=== PATIENT | female | born 1980 | race Caucasian/White ===

== ENCOUNTER 2022-05-29 15:41 | Outpatient (CLI) | payer MEDICAID, SELFPAY ==
--- NOTE | 2022-05-29 | US_ITS ---
WS: [id number] TRANSABDOMINAL PELVIC AND TRANSVAGINAL PELVIC ULTRASOUND HISTORY: dysmenorrhea COMPARISON: None available. Uterus: 9.5 cm x 5.4 cm x 4.1 cm. Normal size anteverted uterus. A slightly globular appearance of th e uterus. Towards the anterior fundal uterus is a hypoechoic area measuring 2.0 x 2.1 x 2.6 cm most c onsistent with a fibroid. Endometrium: 0.7 cm. Normal size and echogenicity. No increased vascularity. Right ovary: 2.5 cm x 2.3 cm x 1.4 cm. Normal size ovary with several small follicles. Normal vascula rity. No cyst or solid mass. Left ovary: 3.0 cm x 1.9 cm x 2.2 cm. Normal size ovary with several small follicles. Normal vascular ity. No cyst or solid mass. Free fluid: No free fluid. US/US pelv w/transvag [id number] IMPRESSION: 1. Normal endometrium. 2. Uterine fibroid towards the fundus measures 2.0 x 2.1 x 2.6 cm.
== END 2022-05-29 15:42 | disposition home or self-care (01) ==
PROVIDERS: PCP Nurse Practitioner Family; Visit Provider Nurse Practitioner Family
DX: N94.6 Dysmenorrhea, unspecified (principal); D25.9 Leiomyoma of uterus, unspecified
CPT/HCPCS: 76830; 76856

== ENCOUNTER 2022-06-04 09:26 | Emergency (ER) | payer MEDICAID, SELFPAY ==
[2022-06-04 09:33] VITALS: BP 139/88; PULSE 104; RESP 18; TEMP 36.7; O2SAT 100; BMI 25.7
--- NOTE | 2022-06-04 09:37 | XR_ITS ---
WS: [id number] EXAMINATION: XR chest 1V portable [id number] REASON FOR EXAM: dyspnea/cough COMPARISON: 01/05/2010 ORDER DATE: 06/04/2022 9:45 AM TECHNIQUE: A single, portable frontal chest x-ray was obtained. X-RAY FINDINGS: The lungs are clear. Pleural spaces are clear. No pleural effusions or pneumothorax. Cardiomediastinal silhouette is normal. No evidence for pulmonary edema. Soft tissue and osseous structures are unremarkable. No tubes or lines are present. XR/XR chest 1V portable [id number] IMPRESSION: Unremarkable frontal portable chest x-ray.
--- NOTE | 2022-06-04 09:37 | ECG_ITS ---
[facility] Test Date: 2022-06-04 Pat Name: Tammi Wells Department: Room: Gender: Female Fitting Room Attendant: : 1980 Requested By: Saulo Chapman Order Number: [id number] Fernando MD: Mary Carver M.D. Measurements Intervals [place] Rate: 91 P: 60 WY: 127 QRS: 67 QRSD: 89 T: 53 QT: 354 QTc: 437 Interpretive Statements SINUS RHYTHM POSSIBLE RIGHT VENTRICULAR CONDUCTION DELAY [RSR (QR) IN V1/V2] No previous ECG available for comparison Electronically Signed On 06-04-2022 23:07:21 CDT by Mary Carver M.D. [email or web address] [email or web address] [email or web address] hospitalOakland Single Parents' Network/store/OM/[id number]
--- NOTE | 2022-06-04 09:49 | W.ED.SOB ---
HPI - SOB/Dyspnea General: Chief Complaint: Shortness of Breath/Dyspnea Stated Complaint: swollen neck, sob Time Seen by Provider: 06/04/22 09:29 Source: patient Mode of arrival: ambulatory History of Present Illness: HPI Narrative: 41-year-old female presents to the emergency room with complaints of shortness of breath. Patient is a smoker. She has a baseline productive cough of sputum its been unchanged. She has not had any fever. She states she feels like her neck is swelling adjacent to the trachea on the right and pressing into her trachea she also feels like her right lung has something swelling against that and she cannot breathe well out of her right lung. She states she has a known history of a hiatal hernia. She denies any chest pain. MD elicited complaint: shortness of breath Onset (ago): day(s) Timing: constant Exacerbating factors: nothing Relieving factors: nothing Associated symptoms: Reports chest congestion and chest pain; Deny abdominal pain, cough, diaphoresis, dizziness, extremity pain, fever(s), hemoptysis, lightheadedness, myalgias, nausea, orthopnea, palpitations, paresthesias, polydipsia, polyuria, rash, sense of impending doom, syncope or vomiting Review of Systems Const: Denies: fever(s), chills, fatigue, malaise or diaphoresis ENMT: Denies: throat pain, ear or mastoid pain, nasal discharge or nasal congestion Card: Reports: chest pain; Denies: palpitations, lightheadedness, syncope or orthopnea Resp: Reports: dyspnea, productive cough (Baseline unchanged) and chest congestion; Denies: hemoptysis GI: Denies: abdominal pain, nausea or vomiting : Denies: flank pain, difficulty voiding, dysuria, urinary frequency or urinary urgency Musc: Denies: extremity pain Skin/Breast: Denies: rash or pruritus Neuro: Denies: dizziness Endo: Denies: polyuria or polydipsia Physical Exam Const: GENERAL APPEARANCE: cooperative and comfortable ORIENTATION/CONSCIOUSNESS: Yes awake, Yes oriented to person, Yes oriented to place and Yes oriented to time HENMT: COMMON NORMALS: normocephalic, atraumatic and hearing grossly normal bilaterally HEAD & SCALP: normocephalic and atraumatic Resp: COMMON NORMALS: normal respiratory effort, No retractions, No use of accessory muscles and clear to auscultation bilaterally AUSCULTATION: clear to auscultation bilaterally Cardio: COMMON NORMALS: regular rate, regular rhythm and No murmurs present (Cardio) RATE: regular rate RHYTHM: regular rhythm GI: COMMON NORMALS: Soft to palpation and No hepatosplenomegaly present AUSCULTATION: Yes normoactive bowel sounds PALPATION: Yes Soft to palpation, No Tenderness to palpation present (GI), No Guarding due to palpation present (GI) and Yes No hepatosplenomegaly present Extremity: COMMON NORMALS: normal to inspection, capillary refill normal, no clubbing, cyanosis or edema, no calf tenderness and no pedal edema Neuro: SENSORIUM/ORIENTATION: Yes oriented to person, Yes oriented to place and Yes oriented to time Skin: COMMON NORMALS: no rashes or lesions noted GENERAL SKIN EXAM: no rashes or lesions noted Course Vital Signs: Vital signs: Vital Signs Temperature 98.0 F 06/04/22 09:33 Pulse Rate 80 06/04/22 11:45 Respiratory Rate 20 H 06/04/22 11:45 Blood Pressure 129/85 06/04/22 11:45 Pulse Oximetry 100 06/04/22 11:45 Oxygen Delivery Me thod 06/04/22 11:45 MDM - SOB/Dyspnea Medical Decision Making Patient is a lifelong smoker. Suspect her symptoms are depression due to COPD. We will start her on Advair as well as a prednisone taper albuterol to use as needed. CT of the neck was done in the emergency room shows an enlarged lymph node referred to ENT for this. Medical Records I reviewed the patient's medical records. Lab Data I reviewed the patient's lab results. 06/04/22 09:53 06/04/22 09:53 Labs/Radiology: Radiology Impressions Chest X-Ray 06/04/22 09:37 IMPRESSION: Unremarkable frontal portable chest x-ray. Neck CT 06/04/22 13:04 Impression: Single enlarged lymph node on right side of the neck on axial image 51 of 113. Laboratory Results WBC 10.1 10^3/uL (4.0-10.0) H 06/04/22 09:53 RBC 4.44 10^6/uL (4.1-5.3) 06/04/22 09:53 Hgb 8.4 g/dL (11.5-15.3) L 06/04/22 09:53 Hct 30.7 % (37.0-47.0) L 06/04/22 09:53 MCV 69.1 fl (81-99) L 06/04/22 09:53 MCH 18.9 pg (28.0-34.0) L 06/04/22 09:53 MCHC 27.4 g/dL (30.0-36.0) L 06/04/22 09:53 RDW 17.9 % (12.1-15.1) H 06/04/22 09:53 Plt Count 469 10^3/cmm (130-400) H 06/04/22 09:53 MPV 8.8 fL (7.4-10.4) 06/04/22 09:53 Neut % (Auto) 77.2 % 06/04/22 09:53 Lymph % (Auto) 15.6 % 06/04/22 09:53 Gonzales % (Auto) 6.3 % 06/04/22 09:53 Eos % (Auto) 0.1 % 06/04/22 09:53 Baso % (Auto) 0.5 % 06/04/22 09:53 Neut # (Auto) 7.82 10^3/uL (1.8-7.7) H 06/04/22 09:53 Lymph # (Auto) 1.6 10^3/uL (0.8-4.8) 06/04/22 09:53 Gonzales # (Auto) 0.6 10^3/uL (0.2-0.9) 06/04/22 09:53 Eos # (Auto) 0.0 10^3/uL (0.0-0.8) 06/04/22 09:53 Baso # (Auto) 0.1 10^3/uL (0.0-0.1) 06/04/22 09:53 Nucleated RBC % (auto) 0 % 06/04/22 09:53 Nucleated RBCs # 0.0 /100WBC 06/04/22 09:53 Sodium 136 mmol/L (136-145) 06/04/22 09:53 Potassium 4.0 mmol/L (3.5-5.1) 06/04/22 09:53 Chloride 102 mmol/L (98-107) 06/04/22 09:53 Carbon Dioxide 22 mmol/L (22-29) 06/04/22 09:53 Anion Gap 16.0 (5-19) 06/04/22 09:53 BUN 6 mg/dL (6-20) 06/04/22 09:53 Creatinine 0.5 mg/dL (0.5-0.9) 06/04/22 09:53 GFR Calculation 134.7 mL/min (90-130) H 06/04/22 09:53 Glucose 99 mg/dL (65-115) 06/04/22 09:53 Calculated Osmolality 280 mOsm/kg (285-295) L 06/04/22 09:53 Calcium 9.0 mg/dL (8.5-10.5) 06/04/22 09:53 Total Bilirubin 0.3 mg/dL (0.15-1.2) 06/04/22 09:53 AST 12 U/L (0-32) 06/04/22 09:53 ALT 9 U/L (0-33) 06/04/22 09:53 Alkaline Phosphatase 73 U/L (35-105) 06/04/22 09:53 Total Protein 7.9 g/dL (6.6-8.7) 06/04/22 09:53 Albumin 4.5 g/dL (3.5-5.2) 06/04/22 09:53 Globulin 3.4 g/dL (1.3-4.6) 06/04/22 09:53 Discharge Plan Discharge Patient Disposition: Home Clinical Impression: Acute exacerbation of chronic obstructive airways disease Condition: Stable Prescriptions: New Medrol (Yusuf) 4 mg tablets,dose pack See Rx Instructions .ROUTE .COMPLEX Qty: 21 0RF Rx Instructions: orally per package directions albuterol sulfate 90 mcg/actuation HFA aerosol inhaler 2 inh INHALATION Q4H PRN (Reason: shortness of breath or wheezing) Qty: 18 0RF Advair Diskus 100-50 mcg/dose blister with device 1 inh inhalation BID Qty: 60 0RF No Action amoxicillin 500 mg Capsule 500 mg PO TID alprazolam 0.5 mg tablet 0.25 - 0.5 mg PO BID PRN (Reason: Anxiety) pantoprazole 40 mg tablet,delayed release (DR/EC) 40 mg PO QPM Discharge Orders: Discharge ED (Routine); Ordered 06/04/22 Ordered By: Saulo Whitmore Referrals: Batsheva Thomas APN [Primary Care Provider] - Discharge Diet: Usual diet Discharge Activity: Increase activity as tolerated Patient Instructions: Opioid Safety, Pain Management Activity Restrictions/Additional Instructions: You are seen today for shortness of breath and a sensation of something in your throat. Exam did not show any stridor. We will set you up for an outpatient CT of your neck with IV contrast to evaluate that sensation in your neck. At this time there does not appear to be any emergent problem surrounding the sensation. Your shortness of breath is likely caused by airway disease from long-term smoking. Recommend you start Advair 1 puff twice daily and albuterol as needed. We will also put you on a short steroid taper follow-up with your primary care doctor. project manager interior design will make arrangements for the CT of the neck. Coding Level of Care Code ED Wafer Abrading Machine Tender for Bobbi Truong
[2022-06-04 10:00] VITALS: BP 129/85; PULSE 86; RESP 16; O2SAT 100
[2022-06-04 10:12] LABS: Basophils # 0.1 10^3/uL (0.0-0.1); Basophils % 0.5 %; Eosinophils % 0.1 %; Hematocrit 30.7 % (37.0-47.0); Hemoglobin 8.4 g/dL (11.5-15.3); Lymphocytes # 1.6 10^3/uL (0.8-4.8); Lymphocytes % 15.6 %; Mean Corpuscular HGB Conc 27.4 g/dL (30.0-36.0); Mean Corpuscular Hemoglobin 18.9 pg (28.0-34.0); Mean Corpuscular Volume 69.1 fl (81-99); Mean Platelet Volume 8.8 fL (7.4-10.4); Monocytes # 0.6 10^3/uL (0.2-0.9); Monocytes % 6.3 %; Neutrophils # 7.82 10^3/uL (1.8-7.7); Neutrophils % 77.2 %; Nucleated Red Blood Cells % 0 %; Platelet Count 469 10^3/cmm (130-400); Red Blood Count 4.44 10^6/uL (4.1-5.3); Red Cell Distribution Width 17.9 % (12.1-15.1); White Blood Count 10.1 10^3/uL (4.0-10.0)
[2022-06-04 10:35] LABS: Alanine Aminotransferase 9 U/L (0-33); Albumin Level 4.5 g/dL (3.5-5.2); Alkaline Phosphatase 73 U/L (35-105); Aspartate Amino Transferase 12 U/L (0-32); Blood Urea Nitrogen 6 mg/dL (6-20); Carbon Dioxide 22 mmol/L (22-29); Chloride 102 mmol/L (98-107); Globulin 3.4 g/dL (1.3-4.6); Glomerular Filtration Rate 134.7 mL/min (90-130); Glucose 99 mg/dL (65-115); Osmolality Calculated 280 mOsm/kg (285-295); Sodium 136 mmol/L (136-145); Total Bilirubin 0.3 mg/dL (0.15-1.2); Total Protein 7.9 g/dL (6.6-8.7)
[2022-06-04 11:09] VITALS: BP 129/85; PULSE 83; RESP 16; O2SAT 100
[2022-06-04 11:45] VITALS: BP 129/85; PULSE 80; RESP 20; O2SAT 100
--- NOTE | 2022-06-04 13:04 | CT_ITS ---
WS: [id number] CT scan of the neck. Additional two-dimensional coronal and sagittal reconstruction was performed. Clinical Data: Globus sensation right-sided neck swelling Comparison: None. DLP: 163.[address] scans at [facility] use at least one of these dose optimization techniques: automated e xposure control; mA and/or kV adjustment per patient size (includes targeted exams where dose is matc hed to clinical indication); or iterative reconstruction. Findings: There is a single enlarged lymph node on the right side of the neck measuring 1.9 cm seen best on axi al image 51 of 113, but no diffuse lymphadenopathy is seen. The salivary glands are unremarkable. The re is no prevertebral soft tissue swelling. The larynx is symmetric. The thyroid gland shows normal e nhancement. The floor of the mouth and parapharyngeal spaces are normal. The oral cavity is unremarka ble. The visualized orbital contents appear normal. The carotid arteries bifurcate normally. The vertebral arteries show normal flow. The cervical spine is unremarkable. The lung apices show no abnormalities. The portions of the intracranial circulation which are seen demonstrate no abnormalities. No erosion of the skull or skull base is seen. CT/CT neck w con* [id number] Impression: Single enlarged lymph node on right side of the neck on axial image 51 of 113.
[2022-06-04] MEDS: iohexol 350 mg/mL 500 mL Btl (per mL) IV (13:16)
--- NOTE | 2022-06-05 10:32 | DCPLANNER ---
Addendum entered by Chyna Carbajal 06/12/22 09:23: investor relations manager received the following message from the front office staff at ENT regarding follow up appointment: have attempted to contact pt x3 times. letter mailed on 06-11-22 On 06/11/22 @ 11:47 Shaina Palmer Wrote To ENT Front Office LVM On 06/10/22 @ 15:24 Prabhjot Higuera Wrote To ENT Front Office called & left message 06/10 Addendum entered by Chyna Carbajal 06/07/22 08:07: investor relations manager received the following message from the front office staff at ENT regarding follow up appointment: lvm Original Note: investor relations manager had message to schedule a follow up appointment for patient with ENT. investor relations manager sent patients information to the front office staff at ENT. Patients information will be reviewed, clinic will call patient with appointment information.
== END 2022-06-04 13:34 | disposition home or self-care (01) ==
PROVIDERS: Emergency Provider Family Medicine; PCP Nurse Practitioner Family
DX: J44.1 Chronic obstructive pulmonary disease with (acute) exacerbation (principal); F17.200 Nicotine dependence, unspecified, uncomplicated
CPT/HCPCS: 70491; 71045; 80053; 85025; 93005; 99285; Q9967

== ENCOUNTER 2022-06-08 01:57 | Emergency (ER) | payer MEDICAID, SELFPAY ==
[2022-06-08 02:01] VITALS: BP 158/93; PULSE 81; RESP 16; TEMP 36.9; O2SAT 98
--- NOTE | 2022-06-08 02:28 | ECG_ITS ---
[facility] Test Date: 2022-06-08 Pat Name: Tammi Wells Department: Room: Gender: Female Foot Gatherer: : 1980 Requested By: Ty Byrd Order Number: [id number] King MD: Shaquille Wu M.D. Measurements Intervals [place] Rate: 70 P: 63 VA: 149 QRS: 77 QRSD: 94 T: 69 QT: 381 QTc: 413 Interpretive Statements SINUS RHYTHM POSSIBLE RIGHT VENTRICULAR CONDUCTION DELAY [RSR (QR) IN V1/V2] Compared to ECG 06/04/2022 09:47:58 No significant changes Electronically Signed On 06-08-2022 15:24:34 CDT by Shaquille Wu M.D. [email or web address]/store/OM/[id number]
--- NOTE | 2022-06-08 02:28 | XRR_ITS ---
PROCEDURE INFORMATION: Exam: XR Chest Exam date and time: 06/08/2022 2:40 AM Age: 41 years old Clinical indication: Pain; Chest pressure; Additional info: Cp SOB TECHNIQUE: Imaging protocol: Radiologic exam of the chest. Views: 1 view. COMPARISON: CT neck w con* [id number] 06/04/2022 1:13 PM FINDINGS: Lungs: Unremarkable. No consolidation. Pleural spaces: Unremarkable. No pleural effusion. No pneumothorax. Heart/Mediastinum: Unremarkable. No cardiomegaly. Bones/joints: Unremarkable. XR/XR chest 1V portable [id number] IMPRESSION: No acute findings.
--- NOTE | 2022-06-08 02:29 | ED_ITS ---
HPI - SOB/Dyspnea General: Chief Complaint: Shortness of Breath/Dyspnea Stated Complaint: CP, arm pain Time Seen by Provider: 06/08/22 02:09 History of Present Illness: HPI Narrative: 41-year-old female who was seen 3 days ago with a fullness in her neck and s hortness of breath she was diagnosed with a COPD exacerbation and placed on Advair. She says that she took it for the first time and night around 11, and it seemed to cause a warm, tight, liquidy discomfort in her chest that radiated towards her left arm. This worried her, as she has a brother who in his 30s of a heart condition. She states she still feels like she cannot take in a good breath. The other symptoms are resolved. The fullness in her neck from the other day is resolved as well. She denies any fever. No sputum production. She says she does have a history of anemia, and she was anemic on laboratory testing on her prior visit. MD elicited complaint: shortness of breath Pertinent past history: other Onset (ago): hour(s) Context: recent illness Timing: constant and improved Severity: moderate Exacerbating factors: lying flat and exertion Relieving factors: nothing Known history of: other Associated symptoms: Reports chest congestion, chest pain, cough, dizziness and orthopnea; Deny abdominal pain, extremity pain, fever(s) or vomiting Treatment prior to arrival: none Review of Systems Const: Denies: fever(s) Eyes: Denies: change in vision ENMT: Denies: throat pain Card: Reports: chest pain and orthopnea Resp: Reports: dyspnea and chest congestion GI: Denies: abdominal pain or vomiting Musc: Denies: extremity pain Neuro: Reports: dizziness Physical Exam Const: COMMON NORMALS: no acute distress GENERAL APPEARANCE: cooperative; not ill appearing and not frail appearing HENMT: COMMON NORMALS: normocephalic, atraumatic and Normal external nose present HEAD & SCALP: normocephalic and atraumatic FACE & SINUS: normal facial exam and face symmetric NOSE: Normal external nose present Eye: COMMON NORMALS: Equal, round and reactive pupils present and EOMs intact bilaterally PUPIL: Yes Equal, round and reactive pupils present Neck/C-Spine: GENERAL: Yes trachea midline Chest: CHEST: Yes Symmetrical chest wall rise Resp: COMMON NORMALS: normal respiratory effort, No retractions, No use of accessory muscles and clear to auscultation bilaterally AUSCULTATION: clear to auscultation bilaterally Cardio: COMMON NORMALS: regular rate and regular rhythm RATE: regular rate RHYTHM: regular rhythm GI: COMMON NORMALS: Normal to inspection, nondistended, normoactive bowel sounds present Extremity: COMMON NORMALS: no pedal edema Neuro: MEGAN COMA SCALE: document GCS findings Megan coma scale eye opening: Spontaneous [place] coma scale verbal response: Orientated Megan coma scale motor response: Obey commands Megan coma scale total score: 15 SENS ORY EXAM: Yes extremities (intact) Psych: COMMON NORMALS: speech normal SPEECH: Yes normal speech Skin: COMMON NORMALS: no rashes or lesions noted GENERAL SKIN EXAM: no rashes or lesions noted Course Vital Signs: Vital signs: Vital Signs Temperature 98.4 F 06/08/22 02:01 Pulse Rate 77 06/08/22 06:03 Respiratory Rate 13 06/08/22 06:03 Blood Pressure 138/72 06/08/22 06:03 Pulse Oximetry 97 06/08/22 06:03 Oxygen Delivery Me thod 06/08/22 04:26 MDM - SOB/Dyspnea Medical Decision Making 41 year old female with shortness of breath. What she describes may be an adverse reaction to the advair. She has counseled on this. She'll stop this for now. She tolerated an atrovent nebulizer treatment well in the ER. We will continue this, as she did not seem to like the tachycardia associated with her albuterol. Chest X-ray remains clear. She's oxygenating well. Her hemoglobin is down to 7.8. She was significantly microcytic, so iron studies were obtained, and she appears iron deficient. Laboratory is otherwise not remarkable. She will continue her antibiotics and steroids, add atrovent, add iron supplementation, and follow up closely next week for a repeat hemoglobin. Her BNP is normal. Her delta troponin is -3. EKG did not show significant St. wave changes. She'll be discharged to return for any worsening symptoms. Lab Data 06/08/22 02:39 06/08/22 02:39 Labs/Radiology: Radiology Impressions Chest X-Ray 06/08/22 02:28 IMPRESSION: No acute findings. Laboratory Results WBC 9.3 10^3/uL (4.0-10.0) 06/08/22 02:39 RBC 4.14 10^6/uL (4.1-5.3) 06/08/22 02:39 Hgb 7.8 g/dL (11.5-15.3) L 06/08/22 02:39 Hct 28.4 % (37.0-47.0) L 06/08/22 02:39 MCV 68.6 fl (81-99) L 06/08/22 02:39 MCH 18.8 pg (28.0-34.0) L 06/08/22 02:39 MCHC 27.5 g/dL (30.0-36.0) L 06/08/22 02:39 RDW 17.8 % (12.1-15.1) H 06/08/22 02:39 Plt Count 406 10^3/cmm (130-400) H 06/08/22 02:39 MPV 9.0 fL (7.4-10.4) 06/08/22 02:39 Neut % (Auto) 44.0 % 06/08/22 02:39 Lymph % (Auto) 45.0 % 06/08/22 02:39 [place]gg % (Auto) 10.5 % 06/08/22 02:39 Eos % (Auto) 0.0 % 06/08/22 02:39 Baso % (Auto) 0.2 % 06/08/22 02:39 Neut # (Auto) 4.08 10^3/uL (1.8-7.7) 06/08/22 02:39 Lymph # (Auto) 4.2 10^3/uL (0.8-4.8) 06/08/22 02:39 [place]gg # (Auto) 1.0 10^3/uL (0.2-0.9) H 06/08/22 02:39 Eos # (Auto) 0.0 10^3/uL (0.0-0.8) 06/08/22 02:39 Baso # (Auto) 0.0 10^3/uL (0.0-0.1) 06/08/22 02:39 Nucleated RBC % (auto) 0 % 06/08/22 02:39 Nucleated RBCs # 0.0 /100WBC 06/08/22 02:39 D-Dimer 0.34 ug/mIFEU (0-0.59) 03/25/23 02:39 Sodium 135 mmol/L (136-145) L 06/08/22 02:39 Potassium 3.8 mmol/L (3.5-5.1) 06/08/22 02:39 Chloride 101 mmol/L (98-107) 06/08/22 02:39 Carbon Dioxide 23 mmol/L (22-29) 06/08/22 02:39 Anion Gap 14.8 (5-19) 06/08/22 02:39 BUN 9 mg/dL (6-20) 06/08/22 02:39 Creatinine 0.5 mg/dL (0.5-0.9) 06/08/22 02:39 GFR Calculation 134.7 mL/min (90-130) H 06/08/22 02:39 Glucose 95 mg/dL (65-115) 06/08/22 02:39 Calculated Osmolality 278 mOsm/kg (285-295) L 06/08/22 02:39 Calcium 9.2 mg/dL (8.5-10.5) 06/08/22 02:39 Iron 15 ug/dL (37-145) L 06/08/22 02:39 TIBC 416 mcg/dl 06/08/22 02:39 % Saturation 3.6 % (20-50) L 06/08/22 02:39 Unsat Iron Binding 401 ug/dL (112-347) H 06/08/22 02:39 Ferritin 8 ng/mL (15-150) L 06/08/22 02:39 Total Bilirubin 0.4 mg/dL (0.15-1.2) 06/08/22 02:39 AST 8 U/L (0-32) 06/08/22 02:39 ALT 7 U/L (0-33) 06/08/22 02:39 Alkaline Phosphatase 56 U/L (35-105) 06/08/22 02:39 Troponin T Baseline 10 ng/L (0-10) 06/08/22 02:39 Troponin T 120 Minute 6.61 ng/L (0-10) 06/08/22 04:37 Delta Troponin T -3.39 ABS# (0-10) L 06/08/22 04:37 NT-Pro-B Natriuret Pep 55 pg/mL (0-125) 06/08/22 02:39 Total Protein 7.1 g/dL (6.6-8.7) 06/08/22 02:39 Albumin 4.1 g/dL (3.5-5.2) 06/08/22 02:39 Globulin 3.0 g/dL (1.3-4.6) 06/08/22 02:39 Discharge Plan Discharge Patient Disposition: Home Clinical Impression: Acute exacerbation of chronic obstructive airways disease, Adverse drug reaction Anemia Qualifiers: Anemia type: iron deficiency Iron deficiency anemia type: unspecified iron deficiency Qualified Code(s): D50.9 - Iron deficiency anemia, unspecified Condition: Stable Prescriptions: New Atrovent HFA 17 mcg/actuation HFA aerosol inhaler 2 inh inhalation Q6H PRN (Reason: shortness of breath or wheezing) Qty: 12.9 0RF ferrous fumarate 324 mg (106 mg iron) tablet 324 mg PO BID Qty: 60 0RF Discontinued fluticasone propion-salmeterol [Advair Diskus] 100-50 mcg/dose blister with device 1 inh inhalation BID Qty: 60 0RF No Action amoxicillin 500 mg Capsule 500 mg PO TID alprazolam 0.5 mg tablet 0.25 - 0.5 mg PO BID PRN (Reason: Anxiety) pantoprazole 40 mg tablet,delayed release (DR/EC) 40 mg PO QPM Medrol (Yusuf) 4 mg tablets,dose pack See Rx Instructions .ROUTE .COMPLEX Qty: 21 0RF Rx Instructions: orally per package directions albuterol sulfate 90 mcg/actuation HFA aerosol inhaler 2 inh INHALATION Q4H PRN (Reason: shortness of breath or wheezing) Qty: 18 0RF Discharge Orders: Discharge ED (Routine); Ordered 06/08/22 Ordered By: Ty Claire Referrals: William,JESUS HermanN [Primary Care Provider] - 4-7 days Patient Instructions: Adverse Drug Reaction (ED), Anemia (ED) Activity Restrictions/Additional Instructions: Stop the use of Advair for now. Use the inhaler you were prescribed this morning every 6 hours while awake for the next 48 hours, then as needed. Iron supplementation as directed. See your doctor this coming week for repeat blood count, as you are significantly anemic. Return for any problems. Coding Level of Care Code ED Occupational Therapist Assistant for Bobbi Truong
[2022-06-08 02:34] VITALS: BP 139/90; PULSE 75; RESP 16; O2SAT 99
[2022-06-08 02:51] LABS: Basophils % 0.2 %; Hematocrit 28.4 % (37.0-47.0); Hemoglobin 7.8 g/dL (11.5-15.3); Lymphocytes # 4.2 10^3/uL (0.8-4.8); Mean Corpuscular HGB Conc 27.5 g/dL (30.0-36.0); Mean Corpuscular Hemoglobin 18.8 pg (28.0-34.0); Mean Corpuscular Volume 68.6 fl (81-99); Monocytes % 10.5 %; Neutrophils # 4.08 10^3/uL (1.8-7.7); Nucleated Red Blood Cells % 0 %; Platelet Count 406 10^3/cmm (130-400); Red Blood Count 4.14 10^6/uL (4.1-5.3); Red Cell Distribution Width 17.8 % (12.1-15.1); White Blood Count 9.3 10^3/uL (4.0-10.0)
[2022-06-08 03:07] LABS: Troponin(5th) Baseline 10 ng/L (0-10)
[2022-06-08 03:14] LABS: Alanine Aminotransferase 7 U/L (0-33); Albumin Level 4.1 g/dL (3.5-5.2); Alkaline Phosphatase 56 U/L (35-105); Anion Gap 14.8 (5-19); Aspartate Amino Transferase 8 U/L (0-32); Blood Urea Nitrogen 9 mg/dL (6-20); Calcium 9.2 mg/dL (8.5-10.5); Carbon Dioxide 23 mmol/L (22-29); Chloride 101 mmol/L (98-107); Creatinine Clr Calc Pharmacy 119.7055; Glomerular Filtration Rate 134.7 mL/min (90-130); Glucose 95 mg/dL (65-115); NT Pro B Type Natriuretic Pept 55 pg/mL (0-125); Osmolality Calculated 278 mOsm/kg (285-295); Potassium 3.8 mmol/L (3.5-5.1); Sodium 135 mmol/L (136-145); Total Bilirubin 0.4 mg/dL (0.15-1.2); Total Protein 7.1 g/dL (6.6-8.7)
[2022-06-08 03:19] LABS: D Dimer 0.34 ug/mIFEU (0-0.59)
[2022-06-08 04:04] VITALS: BP 119/74; PULSE 71; RESP 23; O2SAT 96
[2022-06-08 04:26] VITALS: PULSE 78; RESP 16; O2SAT 95
--- NOTE | 2022-06-08 04:32 | ECG_ITS ---
[facility] Test Date: 2022-06-08 Pat Name: Tammi Wells Department: Room: Gender: Female Credit Resolution Representative: : 1980 Requested By: Ty Byrd Order Number: [id number] Fernando MD: Shaquille Wu M.D. Measurements Intervals [place] Rate: 74 P: 66 WY: 135 QRS: 77 QRSD: 86 T: 66 QT: 379 QTc: 423 Interpretive Statements SINUS RHYTHM WITH SINUS ARRHYTHMIA POSSIBLE RIGHT VENTRICULAR CONDUCTION DELAY [RSR (QR) IN V1/V2] Compared to ECG 06/08/2022 02:36:47 No significant changes Electronically Signed On 06-08-2022 15:25:25 CDT by Shaquille Wu M.D. [id number]
[2022-06-08 04:55] LABS: Ferritin 8 ng/mL (15-150); Iron 15 ug/dL (37-145); Percent Saturation 3.6 % (20-50); Total Iron Binding Capacity 416 mcg/dl; Unsaturated Iron Binding 401 ug/dL (112-347)
[2022-06-08 05:00] VITALS: BP 129/75; PULSE 56; RESP 19; O2SAT 97
[2022-06-08 05:03] LABS: Troponin 5 2HR 6.61 ng/L (0-10)
[2022-06-08 05:26] LABS: Troponin 5 2HR Delta -3.39 ABS# (0-10)
[2022-06-08 06:03] VITALS: BP 138/72; PULSE 77; RESP 13; O2SAT 97
== END 2022-06-08 06:04 | disposition home or self-care (01) ==
PROVIDERS: Emergency Provider Emergency Medicine; PCP Nurse Practitioner Family
DX: J44.1 Chronic obstructive pulmonary disease with (acute) exacerbation (principal); D50.9 Iron deficiency anemia, unspecified; T48.6X5A Adverse effect of antiasthmatics, initial encounter
CPT/HCPCS: 71045; 80053; 82728; 83540; 83550; 83880; 84484; 85025; 85378; 93005; 94640; 99285

== ENCOUNTER 2022-06-10 17:05 | Emergency (ER) | payer MEDICAID, SELFPAY ==
[2022-06-10 17:16] VITALS: BP 155/82; PULSE 72; RESP 14; TEMP 36.8; O2SAT 99
[2022-06-10 19:44] LABS: Basophils % 0.1 %; Eosinophils % 0.1 %; Hematocrit 30.1 % (37.0-47.0); Hemoglobin 8.3 g/dL (11.5-15.3); Lymphocytes # 1.9 10^3/uL (0.8-4.8); Lymphocytes % 20.9 %; Mean Corpuscular HGB Conc 27.6 g/dL (30.0-36.0); Mean Corpuscular Hemoglobin 19.1 pg (28.0-34.0); Mean Corpuscular Volume 69.2 fl (81-99); Mean Platelet Volume 9.1 fL (7.4-10.4); Monocytes # 0.5 10^3/uL (0.2-0.9); Monocytes % 5.7 %; Neutrophils # 6.77 10^3/uL (1.8-7.7); Neutrophils % 72.8 %; Nucleated Red Blood Cells % 0 %; Platelet Count 405 10^3/cmm (130-400); Red Blood Count 4.35 10^6/uL (4.1-5.3); Red Cell Distribution Width 18.4 % (12.1-15.1); White Blood Count 9.3 10^3/uL (4.0-10.0)
--- NOTE | 2022-06-10 20:10 | ECG_ITS ---
[facility] Test Date: 2022-06-10 Pat Name: Tammi Wells Department: Room: Gender: Female Chief Operator Synthesis: : 1980 Requested By: Sheila Alvarez Order Number: [id number] Fernando MD: Mary Carver M.D. Measurements Intervals [place] Rate: 63 P: 78 OR: 119 QRS: 82 QRSD: 90 T: 79 QT: 388 QTc: 398 Interpretive Statements SINUS RHYTHM WITH SHORT OR INTERVAL POSSIBLE RIGHT VENTRICULAR CONDUCTION DELAY [RSR (QR) IN V1/V2] Compared to ECG 06/08/2022 04:32:46 Short OR interval now present Sinus arrhythmia no longer present Electronically Signed On 06-12-2022 0:41:41 CDT by Mary Carver M.D. [email or web address] Egil [email or web address].[email or web address]/store/[id number]
[2022-06-10 20:16] LABS: Alanine Aminotransferase 7 U/L (0-33); Albumin Level 4.7 g/dL (3.5-5.2); Alkaline Phosphatase 62 U/L (35-105); Anion Gap 17.3 (5-19); Aspartate Amino Transferase 9 U/L (0-32); Blood Urea Nitrogen 13 mg/dL (6-20); Calcium 9.4 mg/dL (8.5-10.5); Carbon Dioxide 24 mmol/L (22-29); Chloride 100 mmol/L (98-107); Creatinine Clr Calc Pharmacy 119.7055; Globulin 3.4 g/dL (1.3-4.6); Glomerular Filtration Rate 134.7 mL/min (90-130); Glucose 168 mg/dL (65-115); NT Pro B Type Natriuretic Pept 68 pg/mL (0-125); Osmolality Calculated 288 mOsm/kg (285-295); Potassium 4.3 mmol/L (3.5-5.1); Sodium 137 mmol/L (136-145); Total Bilirubin 0.3 mg/dL (0.15-1.2); Total Protein 8.1 g/dL (6.6-8.7)
[2022-06-10 20:31] LABS: Troponin(5th) Baseline 6 ng/L (0-10)
[2022-06-10 20:43] VITALS: BP 144/79; PULSE 69; TEMP 36.6; O2SAT 98
--- NOTE | 2022-06-10 21:41 | ED_ITS ---
HPI - SOB/Dyspnea General: Chief Complaint: Shortness of Breath/Dyspnea Stated Complaint: sob Time Seen by Provider: 06/10/22 21:39 History of Present Illness: HPI Narrative: Patient presents to the ER with complaints of shortness of breath. Patient has been seen twice for this recently within the last week. Patient has been newly diagnosed with COPD and iron deficiency anemia. Patient recently completed 1 Medrol Dosepak, a round of azithromycin, has been put on an albuterol inhaler, and is currently on a prednisone tapering dose and oral iron. Patient says her breathing is not getting any better. Patient's main complaint is that when she starts to sleep she stops breathing and gasp for air waking herself up. Patient has a home pulse ox and she says she has seen a drop probably to 74% during 1 of these episodes. Patient is trying to get in with her primary care doctor but they are out on vacation. Patient has an appointment with the director wholesale but is not until August. MD elicited complaint: shortness of breath Pertinent past history: COPD Onset (ago): week(s) (1 week) Context: other (Choking, gasping for air when sleeping) Timing: constant Severity: moderate Exacerbating factors: nothing Relieving factors: nothing Associated symptoms: Reports no associated symptoms; Deny abdominal pain, chest pain, fever(s), nausea, palpitations, polydipsia, polyuria or vomiting Treatment prior to arrival: other Review of Systems General: Reports: 10 or more systems reviewed and unremarkable except in HPI and below Const: Denies: fever(s) or chills Eyes: Denies: change in vision ENMT: Denies: throat pain Card: Denies: chest pain, palpitations or irregular heart rhythm Resp: Reports: dyspnea; Denies: productive cough or non-productive cough GI: Denies: abdominal pain, nausea, vomiting or diarrhea : Denies: flank pain, difficulty voiding or dysuria Musc: Denies: neck pain or back pain Skin/Breast: Denies: rash or pruritus Neuro: Denies: headache(s), numbness in extremities or weakness in extremities Psych: Denies: anxiety or depression Endo: Denies: polyuria or polydipsia Semaj/Lymph: Denies: easy bruising or easy bleeding All/Imm: Denies: urticaria or throat swelling Physical Exam Const: COMMON NORMALS: no acute distress, average body habitus, patient or iented x3, no limitations, healthy appearing, alert and well nourished HENMT: COMMON NORMALS: normocephalic, atraumatic, hearing grossly normal bi laterally, external ears normal and moist oral mucous membranes HEAD & SCALP: normocephalic and atraumatic EXTERNAL EAR: Yes external ears normal Eye: COMMON NORMALS: Equal, round and reactive pupils present, EOMs intact bilaterally, conjunctivae normal and no scleral icterus CONJUNCTIVA: Yes conjunctivae normal PUPIL: Yes Equal, round and reactive pupils present Neck/C-Spine: COMMON NORMALS: full ROM, no lymphadenopathy, supple, no JVD and Thyroid normal THYROID: Thyroid normal Chest: COMMONS NORMALS: normal inspection of the chest and normal palpation of entire chest wall Resp: COMMON NORMALS: normal respiratory effort, No retractions, No use of accessory muscles and clear to auscultation bilaterally AUSCULTATION: clear to auscultation bilaterally Cardio: COMMON NORMALS: no JVD, regular rate, regular rhythm, S1 normal heart sound present, S2 normal heart sound present, No gallops present (Cardio), No clicks present (Cardio), No murmurs present (Cardio) and No rub (Cardio) RATE: regular rate RHYTHM: regular rhythm HEART SOUNDS: S1 normal heart sound present and S2 normal heart sound present GI: COMMON NORMALS: Normal to inspection, nondistended, normoactive bowel sounds present, Soft to palpation, non-tender, No hepatosplenomegaly present and no masses PALPATION: Yes Soft to palpation and Yes No hepatosplenomegaly present Extremity: COMMON NORMALS: normal to inspection Neuro: COMMON NORMALS: patient oriented x3, CN's II-XII intact bilaterally, moves all extremities, no focal motor deficits and no sensory deficits noted SENSORIUM/ORIENTATION: Yes alert Psych: COMMON NORMALS: mental status grossly normal, cooperative and activity/motor behavior normal MOOD & AFFECT: Yes anxious Course Vital Signs: Vital signs: Vital Signs Temperature 98 F 06/10/22 20:43 Pulse Rate 69 06/10/22 20:43 Respiratory Rate 14 06/10/22 17:16 Blood Pressure 144/79 06/10/22 20:43 Pulse Oximetry 98 06/10/22 20:43 Oxygen Delivery Me thod 06/10/22 20:43 MDM - SOB/Dyspnea Medical Decision Making Patient presents to the ER with complaints of shortness of breath, this primarily only happens when patient is sleeping and wakes up gasping for breath. Patient has been seen in the ER approximately 2 times within the last week. Patient has been placed on appropriate antibiotics, steroids, inhalers, and iron supplementation. Patient was found to have iron deficiency anemia at her last visit. Patient has been trying to get in with her PCP with no success, however patient does states she has a appointment with the director wholesale but not until August. It was discussed in detail with the patient how her benign physical exam findings as well as her stable iron deficiency anemia and sleep apnea symptoms could be worked up on an outpatient basis. I feel patient does need a sleep study and probably should be seen by the director wholesale and/or sleep studies sooner than August due to patient's anxiety. Patient will be discharged home to follow-up with PCP and we will try to get her an appointment quicker for a sleep study or director wholesale. Differential Diagnosis Unlikely acute exacerbation of chronic obstructive airways disease, congestive heart failure, community acquired pneumonia, asthma with exacerbation or pulmonary embolism Lab Data 06/10/22 19:20 06/10/22 19:20 Labs/Radiology: Laboratory Results WBC 9.3 10^3/uL (4.0-10.0) 06/10/22 19:20 RBC 4.35 10^6/uL (4.1-5.3) 06/10/22 19:20 Hgb 8.3 g/dL (11.5-15.3) L 06/10/22 19:20 Hct 30.1 % (37.0-47.0) L 06/10/22 19:20 MCV 69.2 fl (81-99) L 06/10/22 19:20 MCH 19.1 pg (28.0-34.0) L 06/10/22 19:20 MCHC 27.6 g/dL (30.0-36.0) L 06/10/22 19:20 RDW 18.4 % (12.1-15.1) H 06/10/22 19:20 Plt Count 405 10^3/cmm (130-400) H 06/10/22 19:20 MPV 9.1 fL (7.4-10.4) 06/10/22 19:20 Neut % (Auto) 72.8 % 06/10/22 19:20 Lymph % (Auto) 20.9 % 06/10/22 19:20 Meade % (Auto) 5.7 % 06/10/22 19:20 Eos % (Auto) 0.1 % 06/10/22 19:20 Baso % (Auto) 0.1 % 06/10/22 19:20 Neut # (Auto) 6.77 10^3/uL (1.8-7.7) 06/10/22 19:20 Lymph # (Auto) 1.9 10^3/uL (0.8-4.8) 06/10/22 19:20 Meade # (Auto) 0.5 10^3/uL (0.2-0.9) 06/10/22 19:20 Eos # (Auto) 0.0 10^3/uL (0.0-0.8) 06/10/22 19:20 Baso # (Auto) 0.0 10^3/uL (0.0-0.1) 06/10/22 19:20 Nucleated RBC % (auto) 0 % 06/10/22 19:20 Nucleated RBCs # 0.0 /100WBC 06/10/22 19:20 Sodium 137 mmol/L (136-145) 06/10/22 19:20 Potassium 4.3 mmol/L (3.5-5.1) 06/10/22 19:20 Chloride 100 mmol/L (98-107) 06/10/22 19:20 Carbon Dioxide 24 mmol/L (22-29) 06/10/22 19:20 Anion Gap 17.3 (5-19) 06/10/22 19:20 BUN 13 mg/dL (6-20) 06/10/22 19:20 Creatinine 0.5 mg/dL (0.5-0.9) 06/10/22 19:20 GFR Calculation 134.7 mL/min (90-130) H 06/10/22 19:20 Glucose 168 mg/dL (65-115) H 06/10/22 19:20 Calculated Osmolality 288 mOsm/kg (285-295) 06/10/22 19:20 Calcium 9.4 mg/dL (8.5-10.5) 06/10/22 19:20 Total Bilirubin 0.3 mg/dL (0.15-1.2) 06/10/22 19:20 AST 9 U/L (0-32) 06/10/22 19:20 ALT 7 U/L (0-33) 06/10/22 19:20 Alkaline Phosphatase 62 U/L (35-105) 06/10/22 19:20 Troponin T Baseline 6 ng/L (0-10) 06/10/22 19:20 NT-Pro-B Natriuret Pep 68 pg/mL (0-125) 06/10/22 19:20 Total Protein 8.1 g/dL (6.6-8.7) 06/10/22 19:20 Albumin 4.7 g/dL (3.5-5.2) 06/10/22 19:20 Globulin 3.4 g/dL (1.3-4.6) 06/10/22 19:20 EKG Data EKG 1: I personally reviewed and interpreted this EKG as follows: EKG Interpretation Date: 06/10/22 EKG interpretation time: 21:58 Prior EKG tracings: not available for review Interpretation: EKG showed ventricular rate of 63 bpm, sinus rhythm with a short [place] interval, [place] interval of 119, possible right ventricular conduction delay, QRS duration 90, QTc, 395, no ST T wave changes Discharge Plan Discharge Patient Disposition: Home Clinical Impression: Apnea, sleep Qualifiers: Sleep apnea type: unspecified type Qualified Code(s): G47.30 - Sleep apnea, unspecified Anemia Qualifiers: Anemia type: iron deficiency Iron deficiency anemia type: unspecified iron deficiency Qualified Code(s): D50.9 - Iron deficiency anemia, unspecified Condition: Stable Prescriptions: No Action amoxicillin 500 mg Capsule 500 mg PO TID alprazolam 0.5 mg tablet 0.25 - 0.5 mg PO BID PRN (Reason: Anxiety) pantoprazole 40 mg tablet,delayed release (DR/EC) 40 mg PO QPM Medrol (Yusuf) 4 mg tablets,dose pack See Rx Instructions .ROUTE .COMPLEX Qty: 21 0RF Rx Instructions: orally per package directions albuterol sulfate 90 mcg/actuation HFA aerosol inhaler 2 inh INHALATION Q4H PRN (Reason: shortness of breath or wheezing) Qty: 18 0RF Atrovent HFA 17 mcg/actuation HFA aerosol inhaler 2 inh inhalation Q6H PRN (Reason: shortness of breath or wheezing) Qty: 12.9 0RF ferrous fumarate 324 mg (106 mg iron) tablet 324 mg PO BID Qty: 60 0RF Discharge Orders: Discharge ED (Routine); Ordered 06/10/22 Ordered By: Barry Kent Referrals: Batsheva Thomas APN [Primary Care Provider] - 1 week Discharge Diet: Advance as tolerated Discharge Activity: Resume usual activity Patient Instructions: Iron Rich Diet (ED), Shortness of Breath (ED), Obstr uctive Sleep Apnea Coding Level of Care Code ED Mapping Supervisor for Bobbi Truong
[2022-06-10 22:22] LABS: Troponin 5 2HR Delta 0 ABS# (0-10)
--- NOTE | 2022-06-11 10:18 | DCPLANNER ---
Addendum entered by Chyna Carbajal 09/17/22 11:55: Patient had a follow up appointment scheduled with [facility] - patient did attend appointment. Addendum entered by Chyna Carbajal 06/14/22 08:00: Patient has a follow up appointment scheduled for Friday, September 09, 2022 at 10:[address] Gagnon at [facility]. Original Note: manager part had message to schedule a follow up appointment for patient with pulmonology. manager part sent patients information to the front office staff at [facility]. Patients information will be printed and reviewed. Clinic will call patient with appointment information.
== END 2022-06-10 22:25 | disposition home or self-care (01) ==
PROVIDERS: Emergency Medicine; Emergency Provider Emergency Medicine; PCP Nurse Practitioner Family
DX: G47.30 Sleep apnea, unspecified (principal); D50.9 Iron deficiency anemia, unspecified
CPT/HCPCS: 36415; 80053; 83880; 84484; 85025; 93005; 99285

== ENCOUNTER 2022-06-18 15:59 | Emergency (ER) | payer MEDICAID, SELFPAY ==
[2022-06-18 16:03] VITALS: BP 148/81; PULSE 87; RESP 18; TEMP 36.5; O2SAT 100; BMI 24.7
--- NOTE | 2022-06-18 16:11 | W.ED.ALLEREA ---
HPI - Allergic Reaction General: Chief complaint: Allergic Reaction Stated complaint: possible allergic reaction Time Seen by Provider: 06/18/22 16:10 History of Present Illness: HPI narrative: Patient is a 41-year-old female comes to the ED with possible allergic reaction. Patient was recently prescribed Augmentin for dental infection and had an allergic reaction to that. She was then switched to Keflex and took a dose today. She started feeling some tongue numbness and tingling. She took 50 mg of Benadryl and 40 mg of Pepcid and was instructed to come to the ED for further evaluation. Here in the ED she says her symptoms have almost resolved but she still having a little bit of numbness tingling sensation in her tongue but it is nowhere near as bad as it was earlier. Denies any other symptoms. Patient does have a prescription for clindamycin at home that she can use to treat dental infection. Associated symptoms: Reports tongue swelling (Numbness/tingling in tongue); Deny abdominal pain, nausea or vomiting Review of Systems Const: Denies: fever(s), chills or fatigue Eyes: Denies: change in vision or eye discomfort ENMT: Denies: throat pain, odynophagia, nasal discharge or nasal congestion Card: Denies: chest pain, palpitations, edema, swelling of feet/ankles, dyspnea on exertion or orthopnea Resp: Denies: dyspnea, productive cough or non-productive cough GI: Denies: abdominal pain, nausea, vomiting, diarrhea, constipation or hematochezia : Denies: flank pain, dysuria or hematuria Musc: Denies: neck pain, back pain or extremity swelling Skin/Breast: Denies: rash or new lesions Neuro: Denies: headache(s), numbness in extremities or weakness in extremities All/Imm: Reports: tongue swelling (Numbness/tingling in tongue); Denies: urticaria PFS ED PFSH: Medical History (Updated 06/19/22 @ 07:56 by SIDRA Fisher) No pertinent family history No pertinent past medical history Physical Exam Const: COMMON NORMALS: patient oriented x3 HENMT: COMMON NORMALS: normocephalic HEAD & SCALP: normocephalic MOUTH: Normal oral and palatal mucosa present, lip normal and tongue normal THROAT: posterior oropharynx normal and uvula midline Neck/C-Spine: COMMON NORMALS: supple GENERAL: Yes normal visual inspection Resp: COMMON NORMALS: normal respiratory effort, No retractions, No use of accessory muscles and clear to auscultation bilaterally AUSCULTATION: clear to auscultation bilaterally Cardio: COMMON NORMALS: regular rate, regular rhythm, S1 normal heart sound present, S2 normal heart sound present, No gallops present (Cardio), No clicks present (Cardio), No murmurs present (Cardio) and Peripheral pulses 2+ throughout RATE: regular rate RHYTHM: regular rhythm HEART SOUNDS: S1 normal heart sound present and S2 normal heart sound present PERIPHERAL PULSES: Peripheral pulses 2+ throughout GI: COMMON NORMALS: Normal to inspection, nondistended, normoactive bowel sounds present, Soft to palpation, non-tender and no masses PALPATION: Yes Soft to palpation : COMMON NORMALS: Yes no CVA tenderness BLADDER/KIDNEY EXAM: Yes no CVA tenderness Back/Pelvis: COMMON NORMALS: no CVA tenderness Extremity: COMMON NORMALS: normal to inspection Neuro: COMMON NORMALS: patient oriented x3 GAIT: Yes Normal gait present Skin: GENERAL SKIN EXAM: dry skin Course Vital Signs: Vital signs: Vital Signs Temperature 97.7 F 06/18/22 16:03 Pulse Rate 87 06/18/22 16:03 Respiratory Rate 18 06/18/22 16:03 Blood Pressure 148/81 06/18/22 16:03 Pulse Oximetry 100 06/18/22 16:03 Oxygen Delivery Me thod 06/18/22 16:03 MDM - Allergic Reaction Medical Decision Making Patient is a 41-year-old female comes to the ED with possible allergic reaction. Patient was recently prescribed Augmentin for dental infection and had an allergic reaction to that. She was then switched to Keflex and took a dose today. She started feeling some tongue numbness and tingling. She took 50 mg of Benadryl and 40 mg of Pepcid and was instructed to come to the ED for further evaluation. Here in the ED she says her symptoms have almost resolved but she still having a little bit of numbness tingling sensation in her tongue but it is nowhere near as bad as it was earlier. Denies any other symptoms. Patient does have a prescription for clindamycin at home that she can use to treat dental infection. Vitals are stable. Patient appears nontoxic in no acute distress. Lip and tongue are normal. Lungs are clear to auscultation bilaterally. She was given a dose of Solu-Medrol here in the ED and her symptoms completely resolved. She was stable for discharge home and diagnosed with allergic reaction to antibiotic. Told to stop taking her previously prescribed Keflex and instead start taking her previously prescribed clindamycin. She was sent home with the prescription for an EpiPen and told to continue taking Benadryl as needed. Strict return to ED precautions given. Patient understood and agreed with plan. Discharge Plan Discharge Patient Disposition: Home Clinical Impression: Allergic reaction due to antibacterial drug Condition: Stable Prescriptions: New EpiPen 0.3 mg/0.3 mL auto-injector 0.3 mg IM Q20M PRN (Reason: anaphylaxis) Qty: 2 0RF Rx Instructions: for 2 doses No Action clindamycin HCl 300 mg capsule 600 mg PO Q8H 7 Days Qty: 42 0RF alprazolam 0.5 mg tablet 0.25 - 0.5 mg PO BID PRN (Reason: Anxiety) pantoprazole 40 mg tablet,delayed release (DR/EC) 40 mg PO QPM Medrol (Yusuf) 4 mg tablets,dose pack See Rx Instructions .ROUTE .COMPLEX Qty: 21 0RF Rx Instructions: orally per package directions albuterol sulfate 90 mcg/actuation HFA aerosol inhaler 2 inh INHALATION Q4H PRN (Reason: shortness of breath or wheezing) Qty: 18 0RF Atrovent HFA 17 mcg/actuation HFA aerosol inhaler 2 inh inhalation Q6H PRN (Reason: shortness of breath or wheezing) Qty: 12.9 0RF ferrous fumarate 324 mg (106 mg iron) tablet 324 mg PO BID Qty: 60 0RF Discharge Orders: Discharge ED (Routine); Ordered 06/18/22 Ordered By: Carson Davenport Referrals: Jodie Arechiga FNP [Primary Care Provider] - Discharge Diet: Regular Discharge Activity: Increase activity as tolerated Activity Restrictions/Additional Instructions: Follow-up with medical provider as directed in the next 5 to 7 days for reevaluation. Take medications as prescribed. Take [id number] Benadryl as needed for any other allergic reaction symptoms. Return to the ER or your medical provider if condition worsens. Please read and understand discharge instructions. Thank you for choosing [facility] for your healthcare needs today. Please realize this is an emergency room and that we are providing you with a medical screening exam and this may not be complete and all inclusive of all the testing and or work up that you may need to determine your ailment or severity of your illness. It is very important that you follow up as instructed or that you return to the Emergency Department should you have concerns or if your condition changes or worsens in any way. Coding Level of Care Code ED Packaging Sales for Bobbi Truong
== END 2022-06-18 16:58 | disposition home or self-care (01) ==
PROVIDERS: Emergency Provider Physician Assistant; PCP Nurse Practitioner Family
DX: T78.40XA Allergy, unspecified, initial encounter (principal); T36.0X5A Adverse effect of penicillins, initial encounter; T36.1X5A Adverse effect of cephalosporins and other beta-lactam antibiotics, initial encounter; X58.XXXA Exposure to other specified factors, initial encounter
CPT/HCPCS: 96372; 99284; J2930

== ENCOUNTER 2022-09-05 11:10 | Outpatient (CLI) | payer MEDICAID, SELFPAY ==
--- NOTE | 2022-09-05 11:17 | MM_ITS ---
WS: [id number] BILATERAL 3D TOMOSYNTHESIS DIGITAL DIAGNOSTIC MAMMOGRAPHY WITH CAD CLINICAL INFORMATION: RT BR LUMP/PAIN HISTORY: Palpable lump RIGHT breast COMPARISON: None. TECHNIQUE: Bilateral CC, MLO, and ML views. FINDINGS: The breasts are composed of heterogeneous fibroglandular density, which can limit the detection of sm all underlying mass lesions. Palpable marker upper outer RIGHT breast. 9 mm ovoid nodule deep to the palpable marker. Ultrasound is pending. Ovoid nodule along the posterior nipple line LEFT breast measuring 6 mm ultrasound is pending. ULTRASOUND BREAST BILATERAL TECHNIQUE: Ultrasound bilateral focused area of concern. CLINICAL INFORMATION: RT BR LUMP/PAIN COMPARISON: None. FINDINGS: RIGHT BREAST: Ultrasound RIGHT breast area of concern 11:00 position 2 cm from the nipple. Ovoid nodule measuring 1 .0 x 1.1 x 0.7 cm corresponds the palpable abnormality. This may represent a fibroadenoma or possibly dense complex cyst but indeterminant. Recommend further evaluation with ultrasound-guided biopsy. LEFT BREAST: Additional simple and slightly complex cysts LEFT breast at the 12:00 o'clock and 1:00 positions 1 cm from the nipple and at the areola. 12:00 cyst 1 cm from the nipple measures 0.9 x 0.6 x 0.4 CM. Slightly complex cysts at the 1:00 position at the areola measure 0.6 x 0.8 x 0.2 cm 0.8 x 0.9 x 0.3 CM. MM/[place] [id number] IMPRESSION: BI-RADS: 4-Suspicious Finding-Biopsy Should Be Considered FOLLOW UP: US Guided Biopsy Recommended Recommend ultrasound-guided biopsy palpable RIGHT breast lesion at the 11:00 po sition.
--- NOTE | 2022-09-05 12:02 | US_ITS ---
WS: [id number] BILATERAL 3D TOMOSYNTHESIS DIGITAL DIAGNOSTIC MAMMOGRAPHY WITH CAD CLINICAL INFORMATION: RT BR LUMP/PAIN HISTORY: Palpable lump RIGHT breast COMPARISON: None. TECHNIQUE: Bilateral CC, MLO, and ML views. FINDINGS: The breasts are composed of heterogeneous fibroglandular density, which can limit the detection of sm all underlying mass lesions. Palpable marker upper outer RIGHT breast. 9 mm ovoid nodule deep to the palpable marker. Ultrasound is pending. Ovoid nodule along the posterior nipple line LEFT breast measuring 6 mm ultrasound is pending. ULTRASOUND BREAST BILATERAL TECHNIQUE: Ultrasound bilateral focused area of concern. CLINICAL INFORMATION: RT BR LUMP/PAIN COMPARISON: None. FINDINGS: RIGHT BREAST: Ultrasound RIGHT breast area of concern 11:00 position 2 cm from the nipple. Ovoid nodule measuring 1 .0 x 1.1 x 0.7 cm corresponds the palpable abnormality. This may represent a fibroadenoma or possibly dense complex cyst but indeterminant. Recommend further evaluation with ultrasound-guided biopsy. LEFT BREAST: Additional simple and slightly complex cysts LEFT breast at the 12:00 o'clock and 1:00 positions 1 cm from the nipple and at the areola. 12:00 cyst 1 cm from the nipple measures 0.9 x 0.6 x 0.4 CM. Slightly complex cysts at the 1:00 position at the areola measure 0.6 x 0.8 x 0.2 cm 0.8 x 0.9 x 0.3 CM. US/US breast BI limited* [id number] IMPRESSION: BI-RADS: 4-Suspicious Finding-Biopsy Should Be Considered FOLLOW UP: US Guided Biopsy Recommended Recommend ultrasound-guided biopsy palpable RIGHT breast lesion at the 11:00 po sition.
== END 2022-09-05 11:11 | disposition home or self-care (01) ==
PROVIDERS: PCP Family Medicine; Visit Provider Family Medicine
DX: N64.4 Mastodynia (principal); N60.02 Solitary cyst of left breast
CPT/HCPCS: 76642; 77062; G0279

== ENCOUNTER 2022-10-02 10:50 | Outpatient (CLI) | payer MEDICAID, SELFPAY ==
--- NOTE | 2022-10-02 11:44 | US_ITS ---
WS: [id number] ULTRASOUND-GUIDED RIGHT BREAST BIOPSY CLINICAL INFORMATION: R ABNORMAL MAMMOGRAM COMPARISON: September 05, 2022 FINDINGS: The procedure including risks, benefits, and complications were discussed with the patient who agreed to proceed. Using sterile technique patient was prepped and draped in the usual sterile fashion. Aft er 1% lidocaine utilizing real-time ultrasound guidance 5 14-gauge cores were obtained of the RIGHT b reast lesion at the 11 o'clock position 2 cm from the nipple. Subsequently a titanium clip was placed in the biopsy cavity. No immediate complications. Pathology demonstrates A. 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 US/[place] [id number] IMPRESSION: 1. Uncomplicated ultrasound-guided RIGHT breast biopsy. 2. The pathology demonstrates myxoid fibroadenoma. No malignancy identified. 3. Recommend 6 month follow-up RIGHT breast diagnostic mammography and ultraso und to confirm stability. BI-RADS: 3-Probably Benign FOLLOW UP: 6 Month Follow-up
== END 2022-10-02 10:51 | disposition home or self-care (01) ==
LOC: RAD 10:50
PROVIDERS: PCP Family Medicine; Visit Provider Family Medicine
DX: R92.8 Other abnormal and inconclusive findings on diagnostic imaging of breast (principal)
CPT/HCPCS: 19083; 88305

== ENCOUNTER 2023-01-16 09:55 | Outpatient (CLI) | payer MEDICAID, SELFPAY ==
--- NOTE | 2023-01-16 10:15 | US_ITS ---
WS: [id number] ULTRASOUND SOFT TISSUES RIGHT axilla HISTORY: Axillary lymphadenopathy COMPARISON: None available. TECHNIQUE: 2-D and color Doppler imaging is submitted. Ultrasound directed to the RIGHT axilla. No enlarged lymph nodes are identified. No masses or increas ed vascularity. IMPRESSION: Negative ultrasound RIGHT axilla.
== END 2023-01-16 09:56 | disposition home or self-care (01) ==
LOC: RAD 09:55
PROVIDERS: PCP Family Medicine; Visit Provider Family Medicine
DX: R59.0 Localized enlarged lymph nodes (principal)
CPT/HCPCS: 76882

== ENCOUNTER 2023-02-13 12:09 | Outpatient (CLI) | payer MEDICAID, SELFPAY ==
--- NOTE | 2023-02-13 12:26 | CT_ITS ---
WS: [id number] CT NECK TECHNIQUE: Contrast-enhanced CT of the neck with coronal and sagittal reformatted images. CLINICAL INFORMATION: PAIN IN THROAT/GENERALIZED ENLARGED LYMPH NODES COMPARISON: CT 06/04/2022 DLP: 119.[address] scans at [facility] use at least one of these dose optimization techniques: automated e xposure control; mA and/or kV adjustment per patient size (includes targeted exams where dose is matc hed to clinical indication); or iterative reconstruction. FINDINGS: Small normal sized lymph node deep to the area of palpable concern posterior neck measuring 7 mm with a small amount of surrounding induration. This is likely inflammatory. Parotid glands are normal. Normal submandibular glands. Slightly lobulated RIGHT greater than LEFT gilman bmandibular glands. A few normal sized submandibular lymph nodes. RIGHT mastoid air cells are well aerated. Mucosal thickening LEFT mastoid tip with mastoid sclerosis. Visualized paranasal sinuses are well aerated. Normal posterior nasopharynx and parapharyngeal fat. Adrenal glands are normal. Lung apices are well aerated. No suspicious cervical lymphadenopathy today . Straightening the normal cervical doses. Mild spondylitic changes cervical spine. Mild disc osteophyt e complexes C5-6. IMPRESSION: 1. Deep to the palpable marker is a small normal size 7 millimeter lymph node with surrounding indur ation likely inflammatory. 2. Otherwise no cervical lymphadenopathy today. 3. Normal salivary glands. 4. No evidence of supraglottic or glottic mass. Normal subglottic airway. 5. Chronic mucosal thickening of the LEFT mastoid tip with mastoid sclerosis.
[2023-02-13] MEDS: iohexol 350 mg/mL 500 mL Btl (per mL) IV (12:50)
== END 2023-02-13 12:10 | disposition home or self-care (01) ==
LOC: RAD 12:10
PROVIDERS: PCP Family Medicine; Visit Provider Specialist
DX: R07.0 Pain in throat (principal); R59.1 Generalized enlarged lymph nodes; H70.12 Chronic mastoiditis, left ear
CPT/HCPCS: 70491; Q9967

== ENCOUNTER 2023-03-31 12:42 | Outpatient (CLI) | payer MEDICAID, SELFPAY ==
--- NOTE | 2023-03-31 12:50 | MM_ITS ---
WS: [id number] RIGHT 3D TOMOSYNTHESIS DIGITAL MAMMOGRAPHY WITH CAD CLINICAL INFORMATION: FIBROADENOMA OF RIGHT BREAST HISTORY: 6-month follow-up post biopsy fibroadenoma COMPARISON: 10/02/2022 TECHNIQUE: 3 views of the right breast were obtained. FINDINGS: The right breast is composed of heterogeneous fibroglandular density tissue, which can limit the dete ction of small underlying mass lesions. Stable ovoid nodular density with biopsy clip corresponds to the previously biopsied lesion. Ultrasound is pending. ULTRASOUND BREAST RIGHT TECHNIQUE: Ultrasound right breast focused area of concern. CLINICAL INFORMATION: FIBROADENOMA OF RIGHT BREAST FINDINGS: Ultrasound RIGHT breast 11 o'clock position 2 cm from the nipple. Again seen is the hypoechoic nodule previously biopsied which demonstrated fibroadenoma. Associated biopsy clip. This is stable in size measuring approximately 6.0 x 8.4 x 6.1 mm. Recommend additional 6-month follow-up RIGHT breast diagnostic mammography with ultrasound at the [facility] of next annual screening mammography to confirm 12-month stability. IMPRESSION: MM/[place] [id number] BI-RADS: 2-Benign FOLLOW UP: See Report Recommend additional 6-month follow-up RIGHT breast diagnostic mammography with ultrasound at the time of next annual screening mammography.
== END 2023-03-31 12:43 | disposition home or self-care (01) ==
PROVIDERS: PCP Family Medicine; Referring Provider Surgery; Visit Provider Family Medicine
DX: D24.1 Benign neoplasm of right breast (principal)
CPT/HCPCS: 76642; 77061; G0279

== ENCOUNTER 2023-05-24 15:26 | Emergency (ER) | payer MEDICAID, SELFPAY ==
[2023-05-24 15:31] VITALS: BP 144/82; PULSE 86; RESP 18; O2SAT 100
[2023-05-24 15:55] VITALS: BP 142/96; PULSE 81; RESP 16; O2SAT 99
--- NOTE | 2023-05-24 16:42 | ED_ITS ---
HPI - Allergic Reaction General: Chief complaint: Allergic Reaction Stated complaint: dr dela cruz, swollen throat Time Seen by Provider: 05/24/23 15:48 Source: patient and family Mode of arrival: ambulatory Limitations: no limitations History of Present Illness: HPI narrative: This patient presents to our emergency department because she was told her primary care doctor would not see her until she was seen in the emergency department. The patient states over the past week or thereabouts she has had intermittent episodes where she feels throat fullness. She states that the s ymptoms are unpredictable and they will last for short period of time. She is not had any difficulty swallowing or breathing etc. 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 as usually recommended. She is also had some concerns about environmental allergies and has been seen by her airplane rigger who did IgE testing via blood test to evaluate for certain food allergies etc. As a result it was discovered that she had an alpha gal allergy. She has never suffered a significant food allergy reaction but apparently did have a anaphylactic reaction to the penicillin group including cephalosporin group recently in the last year. This required use of epinephrine. She does not have a family history of any significant allergies. She is a tobacco user. She also relates that she lives in a [facility] primarily that has been discovered to have some black mold growing in various locations. Her family members to include her daughter and her are not similarly affected as she is. She otherwise is in good health but has been followed up for recurrent adenopathy and adenitis by ENT. She currently is asymptomatic and feels fine has not any recent illness to include cough cold congestion etc. Associated symptoms: Deny abdominal pain, hoarseness, nausea or vomiting Review of Systems Const: Denies: fever(s) or chills Eyes: Denies: change in vision ENMT: Denies: throat pain, uvular edema, odynophagia, hoarseness, nasal discharge, nasal congestion or nasal obstruction Card: Denies: chest pain or palpitations Resp: Denies: dyspnea, productive cough, wheezing or stridor GI: Denies: abdominal pain, nausea or vomiting Musc: Denies: neck pain or back pain Skin/Breast: Denies: rash or pruritus Neuro: Denies: headache(s), numbness in extremities or weakness in extremities Psych: Denies: anxiety PFS ED PFSH: Medical History No pertinent family history No pertinent past medical history SOB (shortness of breath) Social History Smoking and tobacco/nicotine status: current every day tobacco/nicotine user cigarettes Packs smoked per day: 1 Years cigarettes smoked: 28 [ Other cigarette details: Started at age 13] Physical Exam Narrative: EXAM NARRATIVE: She appears very comfortable she speaks in complete sentences without dyspnea. There is no evidence of stridor. She is cooperative. Const: COMMON NORMALS: no acute distress, average body habitus, patient oriented x3 and alert GENERAL APPEARANCE: cooperative and comfortable HENMT: COMMON NORMALS: normocephalic, atraumatic, TM's normal bilaterally, Normal nasal mucous membranes and turbinates present, moist oral mucous membranes and oropharynx normal HEAD & SCALP: normocephalic and atraumatic FACE & SINUS: normal facial exam and face symmetric NOSE: Normal nasal mucous membranes and turbinates present TYMPANIC MEMBRANE: TM's normal bilaterally THROAT: uvula midline; no postnasal drainage and no uvular edema Eye: COMMON NORMALS: Equal, round and reactive pupils present, EOMs intact bilaterally and conjunctivae normal CONJUNCTIVA: Yes conjunctivae normal PUPIL: Yes Equal, round and reactive pupils present Neck/C-Spine: COMMON NORMALS: full ROM and no lymphadenopathy OTHER: She has a slightly prominent right sided anterior sternocleidomastoid muscle but no other pathology. She has normal range of motion. Lymph: LYMPHATIC: no lymphadenopathy noted Resp: COMMON NORMALS: normal respiratory effort, No retractions, No use of accessory muscles and clear to auscultation bilaterally EFFORT & INSPECTION: Yes able to speak in complete sentences AUSCULTATION: clear to auscultation bilaterally Cardio: COMMON NORMALS: regular rate, regular rhythm, No murmurs present (Cardio) and Peripheral pulses 2+ throughout RATE: regular rate RHYTHM: regular rhythm PERIPHERAL PULSES: Peripheral pulses 2+ throughout GI: COMMON NORMALS: Normal to inspection, nondistended, normoactive bowel sounds present, Soft to palpation and non-tender PALPATION: Yes Soft to palpation : COMMON NORMALS: Yes no CVA tenderness BLADDER/KIDNEY EXAM: Yes no CVA tenderness Back/Pelvis: COMMON NORMALS: no CVA tenderness, thoracic and lumbar spine normal to inspection, no thoracic nor lumbar tenderness and thoraco-lumbar ROM normal Extremity: COMMON NORMALS: normal to inspection, full ROM and capillary refill normal Neuro: COMMON NORMALS: patient oriented x3, moves all extremities and no focal motor deficits SENSORIUM/ORIENTATION: Yes alert CRANIAL NERVES: Yes CN normal except as noted Psych: COMMON NORMALS: mental status grossly normal Skin: COMMON NORMALS: no rashes or lesions noted, no wounds and turgor normal GENERAL SKIN EXAM: no rashes or lesions noted and turgor normal Course Vital Signs: Vital signs: Vital Signs Pulse Rate 76 05/24/23 16:55 Respiratory Rate 16 05/24/23 16:55 Blood Pressure 134/76 05/24/23 16:55 Pulse Oximetry 99 05/24/23 16:55 Oxygen Delivery Me thod Room Air 05/24/23 15:55 MDM - Allergic Reaction Medical Decision Making Patient is currently in the emergency department because there was some direction from her primary care office or number of days ago that she would not see her without a visit to the emergency department. The patient's had a history of several types of allergies and is also been found to have a alpha gal allergy. She has been complaining of intermittent throat fullness over the past week or so that is been intermittent again intermittent without any known triggers and seems to resolve spontaneously. She denies any wheezing stridor or other associated symptoms. She states she has been limiting her diet as appropriate for her allergies. There is also some question of recent discovery of black mold and other potential environmental allergies in her domicile. She is a tobacco smoker. Clinical examination reveals her to be alert no acute distress she talks complete sentences without dyspnea. No stridor no wheezing no skin rashes oral pharynx is completely clear and normal-appearing. Nasal mucosa is also normal- appearing. Current clinical picture is uncertain as to what could be causing her symptoms. Certainly has no evidence at this time to suggest a oral pharyngeal infection she has normal range of motion cervical spine no evidence of subungual thickening suggestive of Ludewig's angina, no uvular edema, no peritonsillar abscesses, no other stigmata of serious illness at this time. We did have a discussion regarding use of antihistamines and we recommended broadening her antihistamines and increased to cycle through different classes to help increase their effectiveness. She also has Flonase which we recommended that she start using. We also recommended that she may discuss with her primary care provider an allergy and immunology referral for further workup. We discussed use of EpiPen that she has and also reasons to return to the emergency department. At this time she has no evidence of an ongoing emergency medical condition is being discharged in a stable condition with instructions. She was appreciative of care. No radiology studies performed this visit Discharge Plan Discharge Patient Disposition: Home Clinical Impression: Environmental allergies, Allergy to alpha-gal Condition: Stable Prescriptions: No Action Anoro Ellipta 62.5-25 mcg/actuation blister with device 1 inh inhalation DAILY Qty: 60 6RF pantoprazole 40 mg tablet,delayed release (DR/EC) 40 mg PO QPM albuterol sulfate 90 mcg/actuation HFA aerosol inhaler 2 inh INHALATION Q4H PRN (Reason: shortness of breath or wheezing) Qty: 18 0RF ferrous fumarate 324 mg (106 mg iron) tablet 324 mg PO BID Qty: 60 0RF EpiPen 0.3 mg/0.3 mL auto-injector 0.3 mg IM Q20M PRN (Reason: anaphylaxis) Qty: 2 0RF Rx Instructions: for 2 doses Discharge Orders: Discharge ED (Routine); Ordered 05/24/23 Ordered By: Yrn Crisostomo Referrals: Lee Ann Castillo DO [Primary Care Provider] - Discharge Diet: Usual diet Discharge Activity: Resume usual activity Patient Instructions: Opioid Safety, Pain Management Activity Restrictions/Additional Instructions: As we discussed we recommend that you increase your Pepcid to 20 mg per dose. We also recommend that you start your Flonase. We also recommend that you follow-up with your doctor this week for an allergy and immunology referral. Continue with your usual diet although we also recommend you may expand to plant proteins. If you develop any difficulty breathing difficulty swallowing other concerns use your EpiPen and proceed immediately to the emergency department. Coding Level of Care Code ED Hand Drawer In for Bobbi Truong
[2023-05-24 16:55] VITALS: BP 134/76; PULSE 76; RESP 16; O2SAT 99
== END 2023-05-24 16:55 | disposition home or self-care (01) ==
PROVIDERS: Emergency Provider Emergency Medicine; PCP Family Medicine
DX: J30.2 Other seasonal allergic rhinitis (principal); Z91.014 Allergy to mammalian meats; F17.210 Nicotine dependence, cigarettes, uncomplicated
CPT/HCPCS: 99282

== ENCOUNTER 2023-12-01 13:43 | Outpatient (CLI) | payer OTHER, SELFPAY ==
--- NOTE | 2023-12-01 13:48 | MM_ITS ---
WS: [id number] BILATERAL 3D TOMOSYNTHESIS DIGITAL DIAGNOSTIC MAMMOGRAPHY WITH CAD CLINICAL INFORMATION: ABNORMAL RIGHT MAMMOGRAM HISTORY: Myxoid fibroma RIGHT breast 6-month follow-up. COMPARISON: 03/31/2023 TECHNIQUE: Bilateral CC, MLO, and ML views. FINDINGS: The breasts are composed of heterogeneous fibroglandular density, which can limit the detection of sm all underlying mass lesions. Stable ovoid nodular density with biopsy clip corresponds to the previou sly biopsied lesion. Ultrasound is pending. LEFT breast is stable in appearance. ULTRASOUND BREAST RIGHT TECHNIQUE: Ultrasound right breast focused area of concern. CLINICAL INFORMATION: ABNORMAL RIGHT MAMMOGRAM FINDINGS: Ultrasound RIGHT breast 11 o'clock position 2 cm from the nipple. Again seen is the hypoechoic nodule previously biopsied. Prior pathology demonstrated myxoid fibroadenoma. Associated biopsy clip. Lesio n today measures 7 x 9 x 6 mm which is stable in appearance compared to previous. Recommend return to annual screening mammography. MM/MM diag BI tomosynthesis [id number] IMPRESSION: DENSITY: The breasts are heterogeneously dense, which may obscure small masses. BI-RADS: 2 - Benign FOLLOW UP: 1 Year Follow-up Recommend return to annual screening mammography.
== END 2023-12-01 13:44 | disposition home or self-care (01) ==
LOC: RAD 13:44
PROVIDERS: PCP Family Medicine; Visit Provider Family Medicine
DX: N63.11 Unspecified lump in the right breast, upper outer quadrant (principal); R92.333 Mammographic heterogeneous density, bilateral breasts
CPT/HCPCS: 76642; 77062; G0279